=== PATIENT | female | born 1955 ===

== ENCOUNTER 2023-11-24 10:59 | Outpatient (CLI) | payer MEDICARE, SELFPAY ==
--- NOTE | ~2023-11-24 | MR_ITS ---
EXAMINATION: MR knee RT wo con DATE: 11/24/2023 11:32 INDICATION: Chronic right knee pain TECHNIQUE: Magnetic resonance imaging (MRI) of the right knee was performed without intravenous contr ast. Sequences included coronal PD-weighted FSE, coronal PD-weighted FS FSE, sagittal T2-weighted FS E, sagittal PD-weighted FS FSE and axial PD weighted fat saturated FSE. COMPARISON: None. FINDINGS: Medial compartment: Likely complex tear of the body and posterior horn of the medial meniscus with longitudinal horizonta l tear plane extending to the inferior articular surface at the posterior horn. The medial meniscal b rosanne appears small suggesting loss or displacement of some meniscal tissue. There appears be a small m eniscal flap on the inferior gutter along the medial margin of the medial tibial plateau. Partial-thi ckness cartilage loss with relatively smooth chondral surface anteromedial quadrant of the medial tib ial plateau. There is a tiny focus of subarticular decreased signal at the medial side of the medial tibial plateau. Additional partial thickness cartilage loss with smooth chondral surface and without degenerative subchondral changes along the medial side of the anterior to central weightbearing media l femoral condyle. Deep fissuring at the junction of the central to posterior weightbearing medial fe moral condyle. Lateral compartment: Lateral meniscus is normal. Heterogeneous cartilage signal suggesting mild partial-thickness fissurin g at the central aspect of the lateral tibial plateau and juxtaposed anterior weightbearing lateral f emoral condyle. Patellofemoral compartment: Deep chondral ulceration involving greater than 50% of the cartilage thickness with irregular chondra l surface but without degenerative subchondral changes at the patellar apical ridge and medial half o f the lateral patellar facet. Less severe chondral ulceration involving less than 50% the cartilage t hickness with mild surface irregularity at the caudal aspect of the trochlear groove and inferomedial aspect of the lateral trochlea. Ligaments and tendons: Anterior and posterior cruciate ligaments are normal. Mild thickening and mild increased signal of th e proximal medial collateral ligament without surrounding edema consistent with mild scarring related to chronic sprain. The fibular collateral ligament complex is normal. Mild proximal patellar tendino mariam. Quadriceps tendon is normal. The visualized medial and lateral hamstring tendons as well as th e iliotibial band are normal. Fluid: Small right knee joint effusion and mild synovitis at the suprapatellar pouch. No loose osteochondral bodies identified. Osseous/other: Bone alignment is normal. No fracture or pathologic marrow replacing process. IMPRESSION: 1. Complex medial meniscal tear. 2. 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 3. Mild scarring likely related to chronic sprain at the proximal medial collateral ligament. 4. Likely reactive small right knee joint effusion. Reviewed, dictated and finalized at location A. IMPRESSION: 1. Complex medial meniscal tear. 2. Mild tricompartmental osteoarthritis with moderate to high-grade chondromala alirio in the medial compartment and moderate chondromalacia at the patellofemoral compartment and to lesser degree at the lateral compartment. 3. Mild scarring likely related to chronic sprain at the proximal medial collat eral ligament. 4. Likely reactive small right knee joint effusion.
== END 2023-11-24 11:00 ==
LOC: MICIMG 11:00
PROVIDERS: PCP Emergency Medicine; Visit Provider Physician Assistant
DX: S83.231A Complex tear of medial meniscus, current injury, right knee, initial encounter (principal); X58.XXXA Exposure to other specified factors, initial encounter
CPT/HCPCS: 73721